=== PATIENT | female | born 1950 | race Caucasian/White ===

== ENCOUNTER 2017-05-01 20:14 | Emergency (ER) | payer OTHER ==
[~2017-05-01] VITALS: Ht 167.6 cm; Wt 68.0 kg
[~2017-05-01 20:14] MED LIST: NO MEDS; URSO300C7 PO
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
--- NOTE | 2017-05-01 22:38 | NUR ---
RAPID FLU SWAB DONE AND URINE SPECIMEN OBTAINED AND SENT TO THE LAB.
--- NOTE | 2017-05-01 22:41 | NUR ---
AT BEDSIDE FOR EVAL.
[2017-05-01 22:52] LABS: APPEARANCE,URINE CLEAR (CLEAR); BILIRUBIN,URINE NEGATIVE (NEGATIVE); BLOOD, URINE NEGATIVE Ery/uL (NEGATIVE); COLOR,URINE YELLOW (YELLOW); KETONES,URINE NEGATIVE (NEGATIVE); LEUKOCYTE ESTERASE ,URINE 1+ (NEGATIVE); NITRITE, URINE NEGATIVE (NEGATIVE); PROTEIN,URINE NEGATIVE (NEGATIVE); UGLUCOSE NEGATIVE (NEGATIVE); UROBILINOGEN,URINE 0.2 EU/dL (0.2)
[2017-05-01] MEDS ORDERED: ACETAMINOPHEN ES 500 MG TABLET ONE (22:56)
[2017-05-01] MEDS: ACETAMINOPHEN ES 500 MG TABLET PO ONE (22:58)
[2017-05-01 23:02] LABS: BACTERIA,URINE None seen /HPF (None Seen); RBC,URINE NONE SEEN /HPF (0-2); SQUAMOUS EPITHELIAL CELL,UR Few /HPF (None Seen)
--- NOTE | 2017-05-01 23:31 | NUR ---
Patient discharged to home in stable condition. Written and verbal after care instructions given. Patient verbalizes understanding of instruction. Patient ambulatory with a steady gait.
[2017-05-01 23:33] VITALS: BP 127/72
== END 2017-05-01 23:35 | disposition home or self-care (01) ==
LOC: ER 20:14
DX: J06.9 Acute upper respiratory infection, unspecified (principal); N39.0 Urinary tract infection, site not specified; Z88.5 Allergy status to narcotic agent; Z88.0 Allergy status to penicillin; Z88.8 Allergy status to other drugs, medicaments and biological substances; Z88.6 Allergy status to analgesic agent
CPT/HCPCS: 81000-TC; 87086-TC; 87400; A4606; Z7610

== ENCOUNTER 2017-05-13 13:23 | Emergency (ER) | payer OTHER ==
[~2017-05-13] VITALS: Ht 167.6 cm; Wt 72.6 kg
[2017-05-13 13:34] VITALS: BP 102/64
== END 2017-05-13 14:31 | disposition home or self-care (01) ==
LOC: ER 13:27
DX: B34.9 Viral infection, unspecified (principal); Z88.0 Allergy status to penicillin; Z88.5 Allergy status to narcotic agent; Z88.6 Allergy status to analgesic agent; Z88.8 Allergy status to other drugs, medicaments and biological substances; Z60.2 Problems related to living alone; Z98.890 Other specified postprocedural states
CPT/HCPCS: 99281; A4606; Z7610; Z7502

== ENCOUNTER 2017-05-22 18:31 | Emergency (ER) | payer OTHER ==
[~2017-05-22] VITALS: Ht 172.7 cm; Wt 63.5 kg
--- NOTE | 2017-05-22 18:34 | NUR ---
CALLED TO TRIAGED BUT NOT IN WAITING ROOM
--- NOTE | 2017-05-22 18:42 | NUR ---
PATIENT NOT IN WAITING ROOM
--- NOTE | 2017-05-22 18:50 | NUR ---
CALLED AGAIN, NOT IN WAITING ROOM
--- NOTE | 2017-05-22 18:58 | NUR ---
CALLED DEEJAY-- NOT IN THE WAITING ROOM
[2017-05-22 19:05] VITALS: BP 110/61
[2017-05-22] MEDS ORDERED: IBUPROFEN 600 MG TABLET PO ONE ×2 (19:55→20:00)
== END 2017-05-22 21:25 | disposition home or self-care (01) ==
LOC: ER 18:33
DX: J02.9 Acute pharyngitis, unspecified (principal); Z87.442 Personal history of urinary calculi; Z88.0 Allergy status to penicillin; Z88.5 Allergy status to narcotic agent; Z88.6 Allergy status to analgesic agent; Z88.8 Allergy status to other drugs, medicaments and biological substances; Z60.2 Problems related to living alone
CPT/HCPCS: 70490; 99284; A4606; Z7610

== ENCOUNTER 2018-03-31 08:38 | Emergency (ER) | payer OTHER ==
[~2018-03-31] VITALS: Ht 170.2 cm; Wt 63.5 kg
--- NOTE | 2018-03-31 08:48 | NUR ---
BIB SELF W C/O CHILLS AND RECTAL PAIN. TO ER BED 4, HOOKED TO MONITOR, AWAITING MD MANNING
[2018-03-31] MEDS ORDERED: IV NS 0.9% 1,000 ML BAG IV ONE (09:30)
[2018-03-31 09:48] LABS: BASOPHILS # (AUTO) 0.1 /CMM (0.0-0.2); BASOPHILS % (AUTO) 1.1 % (0.0-2.0); EOSINOPHILS % (AUTO) 0.8 % (0.0-6.0); HEMATOCRIT 38 % (33-45); HEMOGLOBIN 12.7 g/dL (11.5-14.8); LYMPHOCYTES # (AUTO) 1.7 /CMM (0.8-4.8); LYMPHOCYTES % (AUTO) 17.8 % (20.0-44.0); MEAN CORPUSCULAR HGB CONC 33 g/dl (31.0-36.0); MEAN CORPUSCULAR VOLUME 90 fL (82-100); MONOCYTES # (AUTO) 0.8 /CMM (0.1-1.30); MONOCYTES % (AUTO) 8.3 % (2.0-12.0); NEUTROPHILS # (AUTO) 6.8 /CMM (1.8-8.9); PLATELET COUNT (AUTO) 232 /CMM (150-450); RED BLOOD CELL COUNT(AUTO) 4.27 MIL/uL (4.0-5.2); WHITE BLOOD COUNT (AUTO) 9.4 K/uL (4.3-11.0)
--- NOTE | 2018-03-31 09:50 | NUR ---
URINE SAMPLE SUBMITTED TO LAB
[2018-03-31 10:02] LABS: CALCIUM, SERUM 8.8 mg/dL (8.5-10.1); CREATININE 0.7 mg/dL (0.6-1.3); POTASSIUM 3.9 mmol/L (3.5-5.1)
[2018-03-31 10:06] LABS: ALBUMIN 3.5 g/dL (3.4-5.0); BILIRUBIN,DIRECT 0.1 mg/dL (0.0-0.2); BILIRUBIN,TOTAL 0.5 mg/dL (0.2-1.0)
--- NOTE | 2018-03-31 11:52 | NUR ---
IV removed. Catheter intact and site benign. Pressure and 4x4 applied to site. No bleeding noted.Indwelling beard catheter changed to leg bag. Patient discharged to home in stable condition. Written and verbal after care instructions given. Patient verbalizes understanding of instruction.
[2018-03-31 11:54] VITALS: BP 130/82
== END 2018-03-31 11:55 | disposition home or self-care (01) ==
LOC: ER 08:45
DX: K59.00 Constipation, unspecified (principal); R33.9 Retention of urine, unspecified; Z87.19 Personal history of other diseases of the digestive system; Z88.5 Allergy status to narcotic agent; Z88.6 Allergy status to analgesic agent; Z88.0 Allergy status to penicillin; Z88.8 Allergy status to other drugs, medicaments and biological substances; Z98.890 Other specified postprocedural states; Z60.2 Problems related to living alone
CPT/HCPCS: 36415; 80048-TC; 80076-TC; 83690-TC; 85025-TC; A4606; J7030; Z7610

== ENCOUNTER 2018-10-22 17:24 | Emergency (ER) | payer OTHER ==
[~2018-10-22] VITALS: Ht 170.2 cm; Wt 92.1 kg
[2018-10-22 17:24] VITALS: BP 130/65
--- NOTE | 2018-10-22 17:30 | NUR ---
GENERALIZED WEAKNES, BLOOD NOTED WHEN SHE WIPED HER PERINEUM. PATIENT A/OX4, NO SOB NOTED, ATTACHED TO THEM ONITOR. KEPT COMFORTABLE.
--- NOTE | 2018-10-22 17:40 | NUR ---
DR. BUNDY AT BEDSIDE FOR EVAL.
[2018-10-22 18:03] LABS: BASOPHILS % (AUTO) 0.6 % (0.0-2.0); EOSINOPHILS % (AUTO) 1.3 % (0.0-6.0); HEMATOCRIT 36 % (33-45); HEMOGLOBIN 12.1 g/dL (11.5-14.8); LYMPHOCYTES # (AUTO) 1.7 /CMM (0.8-4.8); LYMPHOCYTES % (AUTO) 30.7 % (20.0-44.0); MEAN CORPUSCULAR HGB CONC 34 g/dl (31.0-36.0); MEAN CORPUSCULAR VOLUME 89 fL (82-100); MONOCYTES # (AUTO) 0.5 /CMM (0.1-1.30); MONOCYTES % (AUTO) 8.8 % (2.0-12.0); NEUTROPHILS # (AUTO) 3.3 /CMM (1.8-8.9); NEUTROPHILS % (AUTO) 58.6 % (43.0-81.0); PLATELET COUNT (AUTO) 238 /CMM (150-450); RED BLOOD CELL COUNT(AUTO) 4.05 MIL/uL (4.0-5.2); WHITE BLOOD COUNT (AUTO) 5.7 K/uL (4.3-11.0)
[2018-10-22 18:07] LABS: CALCIUM, SERUM 8.9 mg/dL (8.5-10.1); CREATININE 0.8 mg/dL (0.6-1.3); POTASSIUM 3.9 mmol/L (3.5-5.1)
[2018-10-22 18:13] LABS: ALBUMIN 3.3 g/dL (3.4-5.0); BILIRUBIN,DIRECT 0.2 mg/dL (0.0-0.2); TOTAL PROTEIN, SERUM 6.6 g/dL (6.4-8.2)
[2018-10-22 18:14] LABS: APPEARANCE,URINE Clear (CLEAR); BILIRUBIN,URINE Negative (NEGATIVE); BLOOD, URINE Negative Ery/uL (NEGATIVE); COLOR,URINE Light yellow (YELLOW); KETONES,URINE Negative (NEGATIVE); LEUKOCYTE ESTERASE ,URINE Trace (NEGATIVE); NITRITE, URINE Negative (NEGATIVE); PROTEIN,URINE Negative (NEGATIVE); UGLUCOSE Negative (NEGATIVE); UROBILINOGEN,URINE 0.2 EU/dL (0.2)
[2018-10-22 18:36] LABS: BACTERIA,URINE Rare /HPF (None Seen); RBC,URINE 0-2 /HPF (0-2); SQUAMOUS EPITHELIAL CELL,UR Few /HPF (None Seen); WBC,URINE 0-3 /HPF (0-3)
== END 2018-10-22 19:24 | disposition home or self-care (01) ==
LOC: ER 17:30
DX: K62.5 Hemorrhage of anus and rectum (principal); R10.84 Generalized abdominal pain; Z98.890 Other specified postprocedural states; Z88.5 Allergy status to narcotic agent; Z88.6 Allergy status to analgesic agent; Z88.8 Allergy status to other drugs, medicaments and biological substances; Z88.0 Allergy status to penicillin; Z60.2 Problems related to living alone
CPT/HCPCS: 36415; 80048-TC; 80076-TC; 81000-TC; 83690-TC; 85025-TC; 85730-TC

== ENCOUNTER 2018-12-31 20:27 | Emergency (ER) | payer OTHER ==
--- NOTE | 2018-12-31 20:30 | NUR ---
CALLED FROM WAITING ROOM, NO ANSWER.
--- NOTE | 2018-12-31 20:34 | NUR ---
CALLED FROM WAITING ROOM, NO ANSWER.
--- NOTE | 2018-12-31 20:37 | NUR ---
CALLED FROM WAITING ROOM, NO ANSWER.
--- NOTE | 2018-12-31 20:51 | NUR ---
CALLED FROM WAITING ROOM, NO ANSWER.
--- NOTE | 2018-12-31 21:18 | NUR ---
CALLED FROM WAITING ROOM, NO ANSWER.
== END 2018-12-31 21:21 | disposition home or self-care (01) ==
LOC: ER 20:27
DX: Z53.21 Procedure and treatment not carried out due to patient leaving prior to being seen by health care provider (principal)

== ENCOUNTER 2019-01-01 09:57 | Emergency (ER) | payer OTHER ==
[2019-01-02] MEDS ORDERED: ACETAMINOPHEN 325 MG TABLET ONE (17:51)
== END 2019-01-01 10:49 | disposition home or self-care (01) ==
LOC: ER 09:58
DX: Z53.21 Procedure and treatment not carried out due to patient leaving prior to being seen by health care provider (principal)

== ENCOUNTER 2019-01-02 15:53 | Emergency (ER) | payer OTHER ==
[~2019-01-02] VITALS: Ht 167.6 cm; Wt 59.0 kg
[2019-01-02 15:53] VITALS: BP 130/70
--- NOTE | 2019-01-02 17:16 | NUR ---
patient refused flu swab, Chelsey caicedo at bedside and made aware
--- NOTE | 2019-01-02 17:58 | NUR ---
Patient discharged to home in stable condition. Written and verbal after care instructions given. Patient verbalizes understanding of instruction.
== END 2019-01-02 17:57 | disposition home or self-care (01) ==
LOC: ER 16:00
DX: S80.862A Insect bite (nonvenomous), left lower leg, initial encounter (principal); S80.861A Insect bite (nonvenomous), right lower leg, initial encounter; S40.862A Insect bite (nonvenomous) of left upper arm, initial encounter; S40.861A Insect bite (nonvenomous) of right upper arm, initial encounter; B34.9 Viral infection, unspecified; K44.9 Diaphragmatic hernia without obstruction or gangrene; K21.0 Gastro-esophageal reflux disease with esophagitis; Z98.890 Other specified postprocedural states; Z88.5 Allergy status to narcotic agent; Z88.6 Allergy status to analgesic agent; Z88.0 Allergy status to penicillin; Z88.8 Allergy status to other drugs, medicaments and biological substances; Z60.2 Problems related to living alone; W57.XXXA Bitten or stung by nonvenomous insect and other nonvenomous arthropods, initial encounter; Y93.89 Activity, other specified; Y92.89 Other specified places as the place of occurrence of the external cause; Y99.8 Other external cause status

== ENCOUNTER 2019-01-03 11:10 | Emergency (ER) | payer OTHER ==
[~2019-01-03] VITALS: Ht 167.6 cm; Wt 74.8 kg
[2019-01-03 11:17] VITALS: BP 132/58
--- NOTE | 2019-01-03 11:17 | NUR ---
no acute events, she wants to be seen for cough
--- NOTE | 2019-01-03 12:11 | NUR ---
PATIENT TRIAGED BUT LEFT WITHOUT BEING SEEN BY MD.
== END 2019-01-03 12:13 | disposition left against medical advice (07) ==
LOC: ER 11:10
DX: Z53.21 Procedure and treatment not carried out due to patient leaving prior to being seen by health care provider (principal); R05 Cough; Z98.890 Other specified postprocedural states

== ENCOUNTER 2019-02-18 06:41 | Emergency (ER) | payer OTHER ==
[~2019-02-18] VITALS: Ht 167.6 cm; Wt 63.5 kg
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
--- NOTE | 2019-02-18 07:15 | NUR ---
Patient discharged to home in stable condition. Written and verbal after care instructions given. Patient verbalizes understanding of instruction and RX. PT ambulatory with a steady gait.
[2019-02-18 07:16] VITALS: BP 112/78
== END 2019-02-18 07:16 | disposition home or self-care (01) ==
LOC: ER 06:42
DX: M54.5 Low back pain (principal); Z98.890 Other specified postprocedural states; Z88.8 Allergy status to other drugs, medicaments and biological substances; Z88.5 Allergy status to narcotic agent; Z88.6 Allergy status to analgesic agent; Z88.0 Allergy status to penicillin; Z60.2 Problems related to living alone; V49.69XA Unspecified car occupant injured in collision with other motor vehicles in traffic accident, initial encounter; Y93.89 Activity, other specified; Y92.413 State road as the place of occurrence of the external cause; Y99.8 Other external cause status

== ENCOUNTER → 2019-05-19 | Emergency (ER) | payer OTHER ==
[~2019-05-19] VITALS: Ht 167.6 cm; Wt 63.5 kg
[2019-05-19 14:19] VITALS: BP 132/76
== END | disposition home or self-care (01) ==
LOC: ER 14:11
DX: K02.9 Dental caries, unspecified (principal); Z98.890 Other specified postprocedural states; Z88.8 Allergy status to other drugs, medicaments and biological substances; Z88.5 Allergy status to narcotic agent; Z88.6 Allergy status to analgesic agent; Z60.2 Problems related to living alone; Z79.899 Other long term (current) drug therapy

== ENCOUNTER 2021-10-21 16:30 | Emergency (ER) | payer OTHER ==
[~2021-10-21] VITALS: Ht 167.6 cm; Wt 0.5 kg
[2021-10-21 16:55] VITALS: BP 132/71
--- NOTE | 2021-10-21 19:32 | NUR ---
pcr swab collected and sent to lab
[2021-10-21] MEDS ORDERED: IBUP-1955 PO (21:27)
--- NOTE | 2021-10-21 21:35 | NUR ---
Patient discharged to home in stable condition. Written and verbal after care instructions given. Patient verbalizes understanding of instruction.
== END 2021-10-21 21:36 | disposition home or self-care (01) ==
LOC: ER 16:32
DX: U07.1 COVID-19 (principal); Z88.5 Allergy status to narcotic agent; Z88.0 Allergy status to penicillin; Z88.8 Allergy status to other drugs, medicaments and biological substances
CPT/HCPCS: 99284; 71045; 87804; U0003; C9803

== ENCOUNTER 2022-02-07 20:07 | Emergency (ER) | payer OTHER ==
[~2022-02-07] VITALS: Ht 167.6 cm; Wt 63.5 kg
[~2022-02-07 20:07] MED LIST changes: +IBUP-1955 PO
[2022-02-07 21:39] VITALS: BP 106/60
[2022-02-07] MEDS ORDERED: IBUPROFEN 600 MG TABLET ONE (21:58)
[2022-02-07] MEDS ORDERED: IBUPROFEN 600 MG TABLET PO ONE (22:00)
--- NOTE | 2022-02-08 00:24 | NUR ---
pt taken to xray
[2022-02-08] MEDS ORDERED: CLIN300C12 PO (01:35)
[2022-02-08] MEDS ORDERED: FAMO-131 PO (01:36)
--- NOTE | 2022-02-08 01:46 | NUR ---
Patient discharged to home in stable condition. Written and verbal after care instructions given. Patient verbalizes understanding of instruction.
[2022-02-08] MEDS ORDERED: IBUP-1957 PO (01:47)
[2022-02-08] MEDS ORDERED: DICL100G34 TP (01:47)
== END 2022-02-08 01:46 | disposition home or self-care (01) ==
LOC: ER 20:10
DX: K04.7 Periapical abscess without sinus (principal); R07.81 Pleurodynia; Z88.0 Allergy status to penicillin; Z88.8 Allergy status to other drugs, medicaments and biological substances; Z60.2 Problems related to living alone; Z79.899 Other long term (current) drug therapy
CPT/HCPCS: 71100-TC

== ENCOUNTER 2022-06-14 18:55 | Emergency (ER) | payer OTHER ==
[~2022-06-14 18:55] MED LIST changes: +CLIN300C12 PO; +DICL100G34 TP; +FAMO-131 PO; +IBUP-1957 PO
--- NOTE | 2022-06-14 19:52 | NUR ---
called in ed waiting room, no response
--- NOTE | 2022-06-14 20:07 | NUR ---
called in ed waiting room, no response
== END 2022-06-14 20:09 | disposition left against medical advice (07) ==
LOC: ER 18:59
DX: Z53.21 Procedure and treatment not carried out due to patient leaving prior to being seen by health care provider (principal)

== ENCOUNTER 2022-12-06 20:30 | Emergency (ER) | payer OTHER ==
[~2022-12-06] VITALS: Ht 167.6 cm; Wt 90.3 kg
[2022-12-06 22:06] LABS: APPEARANCE,URINE CLEAR (CLEAR); BILIRUBIN,URINE NEGATIVE (NEGATIVE); BLOOD, URINE NEGATIVE Ery/uL (NEGATIVE); COLOR,URINE YELLOW (YELLOW); KETONES,URINE NEGATIVE (NEGATIVE); LEUKOCYTE ESTERASE ,URINE NEGATIVE (NEGATIVE); NITRITE, URINE NEGATIVE (NEGATIVE); PROTEIN,URINE NEGATIVE (NEGATIVE); UGLUCOSE NEGATIVE (NEGATIVE); UROBILINOGEN,URINE 0.2 EU/dL (0.2)
[2022-12-06 22:23] LABS: BASOPHILS # (AUTO) 0.1 K/uL (0.0-0.2); BASOPHILS % (AUTO) 1.6 % (0.0-2.0); EOSINOPHILS # (AUTO) 0.1 K/uL (0.0-0.7); EOSINOPHILS % (AUTO) 2.1 % (0.0-6.0); HEMATOCRIT 35 % (33-45); HEMOGLOBIN 11.5 g/dL (11.5-14.8); LYMPHOCYTES % (AUTO) 35.6 % (20.0-44.0); MEAN CORPUSCULAR HEMOGLOBIN 29 PG (26.0-33.0); MEAN CORPUSCULAR HGB CONC 33 g/dl (31.0-36.0); MEAN CORPUSCULAR VOLUME 90 fL (82-100); MONOCYTES # (AUTO) 0.5 K/uL (0.1-1.30); MONOCYTES % (AUTO) 9.1 % (2.0-12.0); NEUTROPHILS # (AUTO) 2.9 K/uL (1.8-8.9); NEUTROPHILS % (AUTO) 51.6 % (43.0-81.0); PLATELET COUNT (AUTO) 249 K/uL (150-450); RED BLOOD CELL COUNT(AUTO) 3.94 MIL/uL (4.0-5.2); RED CELL DISTRIBUTION WIDTH 14.1 % (11.5-15.0); WHITE BLOOD COUNT (AUTO) 5.7 K/uL (4.3-11.0)
[2022-12-06 22:40] LABS: CALCIUM, SERUM 9.6 mg/dL (8.5-10.1); CREATININE 0.8 mg/dL (0.6-1.3); POTASSIUM 3.4 mmol/L (3.5-5.1)
[2022-12-06 23:11] VITALS: BP 131/70; TEMP 98.1; O2SAT 98
== END 2022-12-06 23:13 | disposition home or self-care (01) ==
LOC: ER 20:30
DX: R42 Dizziness and giddiness (principal); Z88.0 Allergy status to penicillin; Z88.8 Allergy status to other drugs, medicaments and biological substances; Z60.2 Problems related to living alone
CPT/HCPCS: 36415; 70450-TC; 80048-TC; 85025-TC

== ENCOUNTER 2023-01-26 04:17 | Emergency (ER) | payer OTHER ==
[~2023-01-26] VITALS: Ht 167.6 cm; Wt 77.1 kg
[2023-01-26 04:34] VITALS: BP 143/92; TEMP 97.8
[2023-01-26 09:29] LABS: SITE, VBG Other; VBG BASE EXCESS -1.4 mmol/L (-3-3); VBG COHb 0.3 %; VBG MetHb 2.5 %; VBG O2Hb 13.3 %; VBG PCO2 44.9 mmHg (40-52); VBG PH 7.352 (7.31-7.41); VBG PO2 13.2 mmHg (30-50); VBG TOTAL HEMOGLOBIN 11.9 G/dL (12.0-16.0); VENT MODE, VBG ROOM AIR
[2023-01-26 11:30] VITALS: O2SAT 98
== END 2023-01-26 11:31 | disposition home or self-care (01) ==
LOC: ER 04:20
DX: T59.811A Toxic effect of smoke, accidental (unintentional), initial encounter (principal); R06.02 Shortness of breath; Z88.5 Allergy status to narcotic agent; Z88.0 Allergy status to penicillin; Z88.8 Allergy status to other drugs, medicaments and biological substances; Z60.2 Problems related to living alone; Y92.89 Other specified places as the place of occurrence of the external cause
CPT/HCPCS: 71045-TC; 82803-TC

== ENCOUNTER 2023-10-15 12:20 | Emergency (ER) | payer OTHER ==
[~2023-10-15] VITALS: Ht 167.6 cm; Wt 79.4 kg
[2023-10-15] MEDS: IV NS 0.9% 1,000 ML BAG IV ONE (13:10)
[2023-10-15 13:39] LABS: BASOPHILS % (AUTO) 0.1 % (0.0-2.0); EOSINOPHILS % (AUTO) 0.1 % (0.0-6.0); HEMATOCRIT 37 % (33-45); HEMOGLOBIN 12.5 g/dL (11.5-14.8); LYMPHOCYTES # (AUTO) 0.3 K/uL (0.8-4.8); LYMPHOCYTES % (AUTO) 3.2 % (20.0-44.0); MEAN CORPUSCULAR HEMOGLOBIN 30 PG (26.0-33.0); MEAN CORPUSCULAR HGB CONC 34 g/dl (31.0-36.0); MEAN CORPUSCULAR VOLUME 89 fL (82-100); MONOCYTES # (AUTO) 0.3 K/uL (0.1-1.30); MONOCYTES % (AUTO) 3.6 % (2.0-12.0); NEUTROPHILS # (AUTO) 7.3 K/uL (1.8-8.9); PLATELET COUNT (AUTO) 234 K/uL (150-450); RED BLOOD CELL COUNT(AUTO) 4.15 MIL/uL (4.0-5.2); RED CELL DISTRIBUTION WIDTH 15.3 % (11.5-15.0); WHITE BLOOD COUNT (AUTO) 7.8 K/uL (4.3-11.0)
[2023-10-15 14:01] LABS: CALCIUM, SERUM 8.8 mg/dL (8.5-10.1); CARBON DIOXIDE 24 mmol/L (21-32); CHLORIDE 103 mmol/L (98-107); CREATININE 0.6 mg/dL (0.6-1.3); GLUCOSE 110 mg/dL (74-106); POTASSIUM 3.1 mmol/L (3.5-5.1); SODIUM SERUM 137 mmol/L (136-145); UREA NITROGEN, BLOOD 13 mg/dL (7-18)
[2023-10-15 14:17] LABS: ALANINE AMINOTRANSFERASE 26 U/L (12-78); ALKALINE PHOSPHATASE 91 U/L (46-116); ASPARTATE AMINOTRANSFERASE 20 U/L (15-37); BILIRUBIN,DIRECT 0.3 mg/dL (0.0-0.2); BILIRUBIN,TOTAL 1.3 mg/dL (0.2-1.0); LIPASE 15 U/L (16-77)
[2023-10-15 17:15] VITALS: TEMP 98.7
[2023-10-15 18:30] VITALS: BP 105/61; O2SAT 98
== END 2023-10-15 19:06 | disposition short-term general hospital (02) ==
LOC: ER 12:20
DX: K80.50 Calculus of bile duct without cholangitis or cholecystitis without obstruction (principal); R07.89 Other chest pain; Z98.890 Other specified postprocedural states; Z79.899 Other long term (current) drug therapy; Z79.1 Long term (current) use of non-steroidal anti-inflammatories (NSAID); Z60.2 Problems related to living alone; Z88.5 Allergy status to narcotic agent; Z88.0 Allergy status to penicillin
CPT/HCPCS: 99285; 96360; 76705; 71045; 85025; 80048; 83690; 80076; 36415; 84484 ×2; J7030

== ENCOUNTER 2023-12-15 18:30 | Emergency (ER) | payer OTHER ==
[~2023-12-15] VITALS: Ht 167.6 cm; Wt 81.6 kg
[2023-12-15] MEDS ORDERED: ACETAMINOPHEN ES 500 MG TABLET ONE (20:23)
[2023-12-15] MEDS ORDERED: FAMOTIDINE (20 MG) 20 MG TABLET ONE (20:23)
[2023-12-15] MEDS: FAMOTIDINE (20 MG) 20 MG TABLET PO ONE (20:30)
[2023-12-15] MEDS: ACETAMINOPHEN ES 500 MG TABLET PO ONE (20:30)
[2023-12-15] MEDS ORDERED: URSO300C12 PO (20:40)
[2023-12-15] MEDS ORDERED: CYCL5TAB PO (20:40)
[2023-12-15] MEDS ORDERED: ACET-2605 PO (20:40)
[2023-12-15] MEDS ORDERED: ONDANSETRON 4 MG TAB.RAPDIS PO ONE (21:00)
[2023-12-15 21:09] VITALS: BP 130/78; TEMP 98.3; O2SAT 99
== END 2023-12-15 21:09 | disposition home or self-care (01) ==
LOC: ER 18:34
DX: R51.9 Headache, unspecified (principal); K21.9 Gastro-esophageal reflux disease without esophagitis; Z88.0 Allergy status to penicillin; Z88.5 Allergy status to narcotic agent; Z88.8 Allergy status to other drugs, medicaments and biological substances; Z60.2 Problems related to living alone; V43.52XA Car driver injured in collision with other type car in traffic accident, initial encounter; Y93.89 Activity, other specified; Y92.488 Other paved roadways as the place of occurrence of the external cause; Y99.8 Other external cause status
CPT/HCPCS: 70450-TC

== ENCOUNTER 2024-01-27 00:42 | Emergency (ER) | payer OTHER ==
[~2024-01-27] VITALS: Ht 167.6 cm; Wt 74.8 kg
[~2024-01-27 00:42] MED LIST changes: +ACET-2605 PO; +CYCL5TAB PO; +URSO300C12 PO
[2024-01-27] MEDS: SUMATRIPTAN SUCCINATE 25 MG TABLET PO ONE (02:00)
[2024-01-27] MEDS: FAMOTIDINE (20 MG) 20 MG TABLET PO ONE (02:00)
[2024-01-27] MEDS ORDERED: FAMOTIDINE (20 MG) 20 MG TABLET ONE (02:21)
[2024-01-27] MEDS ORDERED: SUMATRIPTAN SUCCINATE 25 MG TABLET ONE (02:21)
[2024-01-27] MEDS: MELOXICAM 7.5 MG TABLET PO SCH (02:32)
[2024-01-27] MEDS ORDERED: NAPROXEN 250 MG TABLET ONE (02:42)
[2024-01-27] MEDS: NAPROXEN 500 MG TABLET PO SCH (02:55)
[2024-01-27 03:03] VITALS: BP 138/76; TEMP 98.6; O2SAT 97
== END 2024-01-27 03:05 | disposition home or self-care (01) ==
LOC: ER 01:15
DX: G43.909 Migraine, unspecified, not intractable, without status migrainosus (principal); G89.4 Chronic pain syndrome; K21.9 Gastro-esophageal reflux disease without esophagitis; R03.0 Elevated blood-pressure reading, without diagnosis of hypertension; Z79.1 Long term (current) use of non-steroidal anti-inflammatories (NSAID); Z79.899 Other long term (current) drug therapy; Z60.2 Problems related to living alone; Z88.0 Allergy status to penicillin; Z88.5 Allergy status to narcotic agent